=== PATIENT | male | born 1985 | race Caucasian/White ===

== ENCOUNTER 2017-10-31 10:36 | Emergency (ER) | payer OTHER ==
[~2017-10-31] VITALS: Ht 170.2 cm; Wt 76.0 kg
[~2017-10-31 10:36] MED LIST: MOTRIN600 MG PO; PROAIR HFA8.5 GM IH; VICODIN 5-3001 EACH PO
[2017-10-31 11:19] LABS: HEMATOCRIT 45.1 % (38.0-50.0); HEMOGLOBIN 15.2 G/DL (12.5-16.6); MCH 29.9 PG (29.0-34.0); MCHC 33.7 G/DL (30.0-36.0); MCV 88.8 FL (86-99); PLATELET COUNT 379 K/uL (156-360); RBC DIS.WIDTH-CV 12.1 % (11.8-14.6); RBC DIS.WIDTH-SD 39.8 % (39-53); RED BLOOD COUNT 5.08 M/uL (4.00-5.50); WHITE BLOOD COUNT 11.1 K/uL (4.1-10.2)
[2017-10-31 11:29] LABS: CHLORIDE 105 mEq/L (99-109); POTASSIUM 3.9 mEq/L (3.7-5.4); SODIUM 140 mEq/L (136-147)
[2017-10-31 11:30] LABS: GLUCOSE 81 mg/dL (70-99)
[2017-10-31 11:34] LABS: GFR ESTIMATE (CALCULATED) > 59 mL/min/ (58.99-99999)
[2017-10-31 11:35] LABS: UREA NITROGEN (BUN) 11 mg/dL (9-23)
[2017-10-31] MEDS ORDERED: DELTASONE20 M1 PO (14:46)
[2017-10-31 15:03] VITALS: BP 105/71
== END 2017-10-31 15:04 | disposition home or self-care (01) ==
LOC: EME 10:36
DX: J45.901 Unspecified asthma with (acute) exacerbation (principal)
CPT/HCPCS: 71046; 80048; 85027; 93005; 94640; 99281; 99283; J7512